=== PATIENT | male | born 1990 | race Two or more races ===

== ENCOUNTER 2017-07-07 09:36 | Emergency (ER) | payer OTHER ==
[2017-07-07 09:45] VITALS: BP 127/69; PULSE 58; TEMP 97.5; BMI 21.6
[2017-07-07] MEDS ORDERED: KETOROLAC TROMETHAMINE 60 MG/2 ML VIAL IM ONE (12:10)
--- NOTE | 2017-07-07 12:15 | PDOC ---
History of Present Illness - General Chief Complaint: Chest Pain Stated Complaint: CHEST PAIN Time Seen by Provider: 07/07/17 10:34 - History of Present Illness Initial Comments: 07/07/17 12:10 CHIEF COMPLAINT: HISTORY OF PRESENT ILLNESS: 27 yo M with no PMH presents to ED with pain to left chest x "months." Patient reports the pain is intermittent, localized to the lower left chest, and elicited with movement. Patient denies any use of drugs, denies recent travel or prolonged periods of sitting. No recent travel or sick contacts. PAST MEDICAL HISTORY: Denies past medical history FAMILY HISTORY: Denies SOCIAL HISTORY: Denies tobacco, alcohol, illicit drug use. SURGICAL HISTORY: Denies ALLERGIES: No known drug allergies REVIEW OF SYSTEMS General/Constitutional: Denies fever or chills. Denies weakness, weight change. HEENT: Denies change in vision. Denies ear pain or discharge. Denies sore throat. Cardiovascular: L sided chest pain x 3 months. Denmies shortness of breath. Respiratory: Denies cough, wheezing, or hemoptysis. Gastrointestinal: Denies nausea, vomiting, diarrhea or constipation. Denies rectal bleeding. Genitourinary: Denies dysuria, frequency, or change in urination. Musculoskeletal: Denies joint or muscle swelling or pain. Denies neck or back pain. Skin and breasts: Denies rash or easy bruising. PHYSICAL EXAM General Appearance: Well-appearing, appropriately dressed. No apparent distress. HEENT: EOMI, PERRLA. No photophobia, scleral icterus. Respiratory/Chest: Lungs CTAB. No shortness of breath, chest tenderness, respiratory distress, accessory muscle use. No crackles, rales, rhonchi, stridor , wheezing, dullness Cardiovascular: RRR. S1, S2. Musculoskeletal/Extremities: Mild tenderness to lower left chest wall with palpation. Normal inspection. FROM of all extremities, normal capillary refill. Pelvis Stable. No CVA tenderness. No tenderness to extremities, pedal edema, swelling, erythema or deformity. Integumentary: Appropriate color, dry, warm. No cyanosis, erythema, jaundice or rash Neurologic: manager information II-XII intact. Fully oriented, alert. Appropriate mood/affect. Motor strength 5/5. No appreciable EOM palsy, facial droop or sensory deficit. 07/07/17 12:13 Past History - Past Medical History Allergies/Adverse Reactions: Allergies Allergy/AdvReac Type Severity Reaction Status Date / Time No Known Allergies Allergy Verified 07/07/17 09:38 Home Medications: Ambulatory Orders Ibuprofen 600 mg PO TID #21 tablet 07/07/17 Other medical history: denies - Immunization History Immunization Up to Date: Yes - Suicide/Smoking/Psychosocial Hx Smoking History: Current every day smoker Have you smoked in the past 12 months: Yes Number of Cigarettes Smoked Daily: 2 Information on smoking cessation initiated: No Hx Alcohol Use: No Drug/Substance Use Hx: No Substance Use Type: None *Physical Exam - Vital Signs Last Vital Signs Temp Pulse Resp BP Pulse Ox 97.5 F L 58 L 18 127/69 98 07/07/17 09:38 07/07/17 09:38 07/07/17 09:38 07/07/17 09:38 07/07/17 09:38 ED Treatment Course - RADIOLOGY Radiology Studies Ordered: Category Date Time Status CHEST PA & LAT [RAD] Stat Radiology 07/07/17 11:26 Completed Medical Decision Making - Medical Decision Making 07/07/17 12:15 27 yo M with no PMH presents to ED with chest pain x 3 months. Reproducible to left chest wall, likely musculoskeletal. -EKG -600 mg ibuprofen EKG with sinus carlos eduardo. Advised patient to f/u with diesel motor mechanic for further evaluation and of signs and symptoms for return to ER; patient verbalized understanding and agrees to plan. *DC/Admit/Observation/Transfer Diagnosis at time of Disposition: Chest pain Qualifiers: Chest pain type: unspecified Qualified Code(s): R07.9 - Chest pain, unspecified - Discharge Dispostion Disposition: HOME Condition at time of disposition: Stable Admit: No - Prescriptions Prescriptions: Ibuprofen 600 mg PO TID #21 tablet - Referrals Referrals: Richardson Castro MD [Staff Physician] - - Patient Instructions Printed Discharge Instructions: DI for Atypical Chest Pain Additional Instructions: Please take medication as prescribed. You need to follow up with a diesel motor mechanic for either an echocardiogram or a halter monitor for further evaluation of your intermittent chest pains. If you develop any new chest pain , shortness of breath, difficulty breathing, or any new or worsening symptoms, please return to the ER.
[2017-07-07] MEDS ORDERED: IBUPROFEN 100 MG/5 ML UNIT DOSE CUPS PO ONE (12:16)
[2017-07-07] MEDS ORDERED: IBUPROFEN 600 MG TABLET (FP) PO ONE (12:19)
== END 2017-07-07 12:24 | disposition home or self-care (01) ==
LOC: JERFT 09:36
DX: R07.9 Chest pain, unspecified (principal); F17.210 Nicotine dependence, cigarettes, uncomplicated
CPT/HCPCS: 71020-TC; 99281-25